=== PATIENT | male | born 2000 | race Caucasian/White ===

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

== ENCOUNTER 2021-01-05 17:27 | Emergency (ER) | payer BC ==
[2021-01-05 17:31] VITALS: BP 113/59; PULSE 76
[2021-01-05] MEDS ORDERED: cefTRIAXone 1 GM Vial IM ONE (18:01)
--- NOTE | 2021-01-05 18:06 | EDM.PDOC ---
ED HPI GENERAL MEDICAL PROBLEM - General Chief Complaint: ENT Problem Stated Complaint: FEVER, SORE THROAT Time Seen by Provider: 01/05/21 17:40 Source of Information: Reports: Patient History Limitations: Reports: No Limitations - History of Present Illness INITIAL COMMENTS - FREE TEXT/NARRATIVE: Sore throat and fever for 3 days Fever to 100 Onset: Gradual Duration: Day(s): Location: Reports: Face Treatments TOUR OPERATOR: Reports: NSAIDS - Related Data Allergies Allergy/AdvReac Type Severity Reaction Status Date / Time azithromycin [From Zithromax] Allergy Rash Verified 01/05/21 17:32 Dairy Products Allergy Stomach Verified 01/05/21 17:32 Upset, constipation Penicillins Allergy Rash Verified 01/05/21 17:32 Home Meds: Home Meds Acetaminophen [Tylenol] 650 mg PO Q4HR PRN 03/07/17 [History] Ibuprofen 800 mg PO Q6HR PRN 03/07/17 [History] Past Medical History HEENT History: Reports: Impaired Vision, Sinusitis Other HEENT History: wears glasses. Hx. of narrow sinus passages Cardiovascular History: Reports: None Respiratory History: Reports: None Gastrointestinal History: Reports: Other (See Below) Other Gastrointestinal History: dairy intolerance Musculoskeletal History: Reports: Other (See Below) Other Musculoskeletal History: scolosis Neurological History: Reports: None Psychiatric History: Reports: None Endocrine/Metabolic History: Reports: None - Infectious Disease History Infectious Disease History: Reports: None - Past Surgical History HEENT Surgical History: Reports: Adenoidectomy, Tonsillectomy Musculoskeletal Surgical History: Reports: Other (See Below) Social & Family History - Family History Family Medical History: No Pertinent Family History - Tobacco Use Tobacco Use Status *Q: Never Tobacco User Second Hand Smoke Exposure: No - Caffeine Use Caffeine Use: Reports: Coffee, Soda - Recreational Drug Use Recreational Drug Use: No ED ROS ENT - Review of Systems Review Of Systems: See Below Constitutional: Reports: Fever HEENT: Reports: Throat Pain ED EXAM, ENT - Physical Exam Exam: See Below Exam Limited By: No Limitations General Appearance: Alert, WD/WN, Mild Distress Ears: Normal TMs Nose: Normal Inspection Mouth/Throat: Pharyngeal Erythema, Tonsillar Erythema, Tonsillar Swelling Course - Vital Signs Last Recorded V/S: Last Vital Signs Temp 97 F 01/05/21 17:27 Pulse 76 01/05/21 17:27 Resp 20 01/05/21 17:27 BP 113/59 L 01/05/21 17:27 Pulse Ox 100 01/05/21 17:27 - Orders/Labs/Meds Labs: Laboratory Tests 01/05/21 Range/Units 17:45 WBC 13.2 H (4.0-10.2) K/uL RBC 4.54 (4.33-5.41) M/uL Hgb 13.9 (13.1-16.8) g/dL Hct 40.4 (39.0-49.0) % MCV 89.0 (84.0-98.0) fL MCH 30.6 (28.2-33.3) pg MCHC 34.4 (31.7-36.0) g/dL RDW 12.4 (11.2-14.1) % Plt Count 191 (150-350) K/uL Neut % (Auto) 70.1 (45.0-80.0) % Lymph % (Auto) 18.8 (10.0-50.0) % [place] % (Auto) 10.2 (2.0-14.0) % Eos % (Auto) 0.8 (0.0-5.0) % Baso % (Auto) 0.1 (0.0-2.0) % Neut # (Auto) 9.26 H (1.40-7.00) K/uL Lymph # (Auto) 2.48 (0.50-3.50) K/uL [place] # (Auto) 1.34 H (0.00-1.00) K/uL Eos # (Auto) 0.11 (0.00-0.50) K/uL Baso # (Auto) 0.01 (0.00-0.20) K/uL Meds: Medications Discontinued Medications Generic Name Dose Route Start Last Admin Trade Name Freq PRN Reason Stop Dose Admin Ceftriaxone Sodium 1 gm 01/05/21 18:01 Rocephin IM 01/05/21 18:02 ONETIME ONE - Re-Assessments/Exams Free Text/Narrative Re-Assessment/Exam: 01/05/21 18:04 Strep positive Pt given Rocephin 1 gm IM in ER Departure - Departure Time of Disposition: 18:15 Disposition: Home, Self-Care 01 Clinical Impression: Strep pharyngitis - Discharge Information *PRESCRIPTION DRUG MONITORING PROGRAM REVIEWED*: Not Applicable *COPY OF PRESCRIPTION DRUG MONITORING REPORT IN PATIENT BERNARD: Not Applicable Instructions: Strep Throat, Adult Additional Instructions: Rx Clindamycin 150 mg 4 times a day Follow up in clinic Sepsis Event Note (ED) - Evaluation Sepsis Screening Result: No Definite Risk - Focused Exam Vital Signs: Vital Signs Temp Pulse Resp BP Pulse Ox 01/05/21 17:27 97 F 76 20 113/59 L 100
== END 2021-01-05 18:30 | disposition home or self-care (01) ==
LOC: LL.ED 17:27
DX: J02.0 Streptococcal pharyngitis (principal); M41.9 Scoliosis, unspecified; Z88.1 Allergy status to other antibiotic agents; Z91.011 Allergy to milk products; Z88.0 Allergy status to penicillin
CPT/HCPCS: 36415; 85025; 87430; 96372; 99283; J0696